=== PATIENT | male | born 1990 | race Caucasian/White ===

== ENCOUNTER 2020-12-25 16:34 | Outpatient (CLI) | payer OTHER, SELFPAY | END 2020-12-25 16:35 | disposition home or self-care (01) | LOC: ANHCOVIDVC 16:34 | DX: Z23 Encounter for immunization (principal) | CPT/HCPCS: 0001A; 91300 ==

== ENCOUNTER 2021-01-15 16:28 | Outpatient (CLI) | payer OTHER, SELFPAY | END 2021-01-15 16:29 | disposition home or self-care (01) | LOC: ANHCOVIDVC 16:28 | DX: Z23 Encounter for immunization (principal) | CPT/HCPCS: 0002A; 91300 ==

== ENCOUNTER 2023-02-20 08:01 | Emergency (ER) | payer OTHER, SELFPAY ==
[2023-02-20 08:34] VITALS: BP 128/88; PULSE 81; RESP 18; TEMP 36.3; O2SAT 98
[2023-02-20 08:35] VITALS: BP 128/88; PULSE 81; RESP 18; TEMP 36.3; O2SAT 98
--- NOTE | 2023-02-20 08:52 | ED.ANIMALBIT ---
HPI - Animal Bite General Chief Complaint: Animal Bite Stated Complaint: cat bite Time Seen by Provider: 02/20/23 08:52 Source: patient Mode of arrival: ambulatory Limitations: no limitations History of Present Illness HPI narrative: 32-year-old male presented for complaint of left forearm and left index finger swelling after cat bite yesterday. He states his cat bit his arm and finger while he was attempting to give the cat a bath. He states he cleansed the site thoroughly following the bite. He endorses sites have progressively become more red and swollen. Unsure of his last tetanus. He denies associated nausea, vomiting, fevers or chills. His cat is up-to-date on vaccinations. Related Data Allergies Allergy/AdvReac Type Severity Reaction Status Date / Time No Known Allergies Allergy Mild Verified 04/15/16 08:15 No Known Allergies Allergy Uncoded 07/05/19 08:01 Review of Systems Review of Systems: CONSTITUTIONAL: Denies body aches, fever, chills, or sweats. EYES: Denies visual changes, redness, or discharge. ENT: Denies rhinorrhea, congestion CARDIOVASCULAR: Denies chest pain, palpitations, or edema. RESPIRATORY: Denies cough or dyspnea. GASTROINTESTINAL: Denies abdominal pain, nausea, vomiting, or diarrhea. SKIN: per HPI MUSCULOSKELETAL: Denies back pain, joint pain, or myalgia. NEUROLOGIC: Denies headache, numbness, tingling, or weakness. [facility] Past Medical History Medical History DHARMESH (obstructive sleep apnea) Family History Family History Father Hypertension Patient's father is in good health Family history of allergic disorder Family history of elevated blood lipids Mother Patient's mother is in good health Sibling Patient's sister is in good health Patient's brother is in good health Grandparent Cerebrovascular accident Family history of kidney disease Family history of lung cancer Diabetes mellitus Social History Social History Second hand tobacco smoke exposure: No Comments At time of signature, I have reviewed and agree with nursing past medical, surgical, social and family history unless otherwise noted. Please see nursing chart for further information. There is no relevant family history pertinent to the presenting complaint Exam Narrative: GENERAL: Well-appearing HEAD: Normocephalic, atraumatic. EYES: conjunctivae clear, and EOMI. ENT: Mucous membranes moist. Oropharynx without edema, erythema or lesions. NECK: Supple. No lymphadenopathy CHEST: Clear to auscultation. HEART: Regular rate and rhythm. SKIN: Warm, dry. Left forearm with 9cm diameter irregular erythematous warm, mildly swollen area surrounding 2 scabbed puncture sites at center; left 2nd digit distal phalanx mildly swollen and erythematous surrounding 2 scabbed puncture sites; no purulent drainage, no streaking EXT: full active ROM, normal strength and sensation to left upper extremity NEURO: Alert and oriented x3. Course Course Emergency Course: Patient is aware of diagnosis, understands and agrees to treatment plan. Anticipatory guidance given. Patient agrees to follow-up as directed and is aware of reasons to seek care at the emergency department. Portions of this record may have been created with voice recognition software Level of Care: Express Care Visit Vital Signs Vital signs: Vital Signs Temperature 97.3 F L 02/20/23 08:34 Pulse Rate 81 02/20/23 08:34 Respiratory Rate 18 02/20/23 08:34 Blood Pressure 128/88 02/20/23 08:34 Pulse Oximetry 98 02/20/23 08:34 Oxygen Delivery Room Air 02/20/23 08:34 Temperature 97.3 F L 02/20/23 08:35 Pulse Rate 81 02/20/23 08:35 Respiratory Rate 18 02/20/23 08:35 Blood Pressure 128/88 02/20/23 08:35 Pulse Oximetry 98 02/20/23 08:35 Oxyge
[2023-02-20] MEDS: TETANUS,DIPHTHERIA,AC PERTUSSIS ADULT (0.5 ML) BOOSTRIX IM (09:04)
== END 2023-02-20 09:29 | disposition home or self-care (01) ==
PROVIDERS: Emergency Provider Nurse Practitioner Family; PCP Family Medicine
DX: S51.832A Puncture wound without foreign body of left forearm, initial encounter (principal); S61.231A Puncture wound without foreign body of left index finger without damage to nail, initial encounter; W55.01XA Bitten by cat, initial encounter; Z23 Encounter for immunization
CPT/HCPCS: 90471; 90715; 99213; G0463